=== PATIENT | male | born 1985 | race Caucasian/White ===

== ENCOUNTER 2024-09-25 21:36 | Emergency (ER) | payer BC ==
--- OUTSIDE RECORDS SUMMARY | 2024-09-25 21:40 | XMS REPORT | Continuity of Care Document ---
Author Name Unknown Address [address] [facility] [place] [address] [facility] thconnect Address [address] [facility] [place] [address] Care Team Providers Care Sld Teacher Name Role Phone AMANDA GREENFIELD Attending Clinician Unavailable WELLNESS Attending Clinician Unavailable Payers Payer Name Policy Type Policy Number Effective Date Expirati on Date Source Allergies, Adverse Reactions, Alerts Allergy Name Allergy Type Status Severity Reaction(s) Onset Date Inactive Date Treating Clinician Comments Source No Known Allergie s DA Active U 04-22 00:00: 00 [facility] No Known Allergie s DA Active U 04-22 00:00: 00 [facility] No Known Allergie s DA Active U 04-11 00:00: 00 [facility] No Known Allergie s DA Active U 04-11 00:00: 00 [facility] Social History Social Habit Start Date Stop Date Quantity Comments Source Sex 2024-05-13 00:11:00 2024-05-13 00:11:00 Male (finding) [facility] Sex Assigned At 1985 00:00:00 1985 00:00:[address] [facility] Smoking Status Start Date Stop Date Source Unknown if ever smoked [facility] Procedures Procedure Date / Time Performed Performing Clinicia n Source CT Chest High Resolution 2024-05-12 16:50:00 [facility] Encounters Start Date/Time End Date/Time Encounter Type Admission Type Attending Clinicians Care Facility Care Department Encounter ID Source 2020-04-22 14:36:00 Inpatient [facility] [id number] [facility] 2024-05-12 16:30:00 2024-05-12 16:31:00 Outpatient R AMANDA GREENFIELD [facility] [id number] [facility] 2024-05-12 16:30:00 2024-05-12 16:31:[address] [facility] [id number] [facility] 2021-03-14 10:18:00 2021-03-14 10:18:00 [facility]patient [facility] [id number] [facility] 2020-12-05 07:52:00 2020-12-05 07:52:00 [facility]patient [facility] [id number] [facility] 2020-07-03 09:22:00 2020-07-03 09:22:00 [facility]patient [facility] [id number] [facility] Results Test Description Test Time Test Comments Results Resul t Comments Source CT Chest High Resolution 2024-05-12 17:55:00 [facility] KHADIJAHHarriettme: SILVIA ANGEL : 1985 Sex: M CH I [facility] Pt Name: SILVIA ANGEL III [id number] Phys: OUT OF TOWN PHYSICIAN JEREMIAH Cross [phone] : 1985 Age: 38 SEX:M [phone] Exam Date: 05/12/24 Status: REG CLI Acct: [id number] Loc: CT Pt Unit #: [id number] Report #: [id number] CC: OUT OF TOWN PHYSICIAN : CAT SCAN REPORT Report Status: Signed Order # Category/Exam [id number] CT/CT Chest High Resolution ([id number]): . Results EXAM:CT Chest High Resolution HISTORY: Bronchiectasis ABPA COMPARISON: None TECHNIQUE: Axial CT chest without contrast using a high resolution technique. Multiplanar reformatted imaging obtained. FINDINGS: Minimal bronchiectasis and bronchial wall thickening in the central lower lobes predominantly. No appreciable consolidation, pleural effusion or pneumothorax. No pulmonary fibrotic changes. No definite air trapping on the expiratory phase imaging. No pericardial effusion. Normal caliber aorta. No enlarged thoracic lymph node. Partially imaged upper abdomen without appreciable acute abnormality. No acute osseous abnormality. IMPRESSION: Mild bronchiectasis. No definite air trapping. No pulmonary fibrotic changes. Reported By: Sudheer Remy MD Electronically Signed Date/Time: 05/12/24 1750 Technologist: ROHAN Dictated Date/Time: 05/12/24 1726 Transcribed Date/Time: 85CB W/AUTO [id number] 11:55:00* Test Item Value Reference Range Interpretation Comme nts WHITE BLOOD CELL (test code = WBC) 4.8 X10(3) 4.5-11.0 N RED BLOOD CELL (test code = RBC) 5.17 X10(6) 4.3-5.9 N HEMOGLOBIN (test code = HGB) 16.4 g/dL 13.5-18.0 N HEMATOCRIT (test code = HCT) 46.0 % 42.0-52.0 N MEAN CELL VOLUME (test code = MCV) 89.0 fL 78-100 N MEAN CELL HGB (test code = MCH) 31.7 pg 26.0-34.0 N MEAN CELL HGB CONCETRATION (test code = MCHC) 35.7 g/dl 30.0-37.0 N RED CELL DISTRIBUTION WIDTH (test code = RDW) 12.1 % 11.5-14.5 N PLATELET COUNT (test code = PLT) 266 X10(3) 150-400 N MEAN PLATELET VOLUME (test c ode = MPV) 9.8 fl 8.7-11.4 N NEUTROPHIL % (test code = NT%) 52.3 % 36.0-66.0 N IMMATURE GRANULOCYTE % (test code = IG%) 0.2 % 0.0-2.0 N LYMPHOCYTE % (test code = LY%) 36.4 % 16-50 N MONOCYTE % (test code = MO%) 9.1 % 0.0-13.0 N EOSINOPHIL % (test code = EO%) 1.2 % 0.0-4.5 N BASOPHIL % (test code = BA%) 0.8 % 0.0-1.5 N NEUTROPHIL # (test code = NT#) 2.5 X10(3) 1.7-7.7 N IMMATURE GRANULOCYTE # (test code = IG#) 0.01 X10(3)uL 0.00-0.03 N LYMPHOCYTE # (test code = LY#) 1.8 X10(3) 1.0-4.8 N MONOCYTE # (test code = MO#) 0.4 X10(3) 0.0-0.89 N EOSINOPHIL # (test code = EO#) 0.1 X10(3) 0.0-0.6 N BASOPHIL # (test code = BA#) 0.0 X10(3) 0.0-0.2 N 85CBC W/AUTO [id number] 13:37:00* Test Item Value Reference Range Interpretation Comme nts WHITE BLOOD CELL (test code = WBC) 5.6 X10(3) 4.5-11.0 N RED BLOOD CELL (test code = RBC) 5.30 X10(6) 4.3-5.9 N HEMOGLOBIN (test code = HGB) 16.4 g/dL 13.5-18.0 N HEMATOCRIT (test code = HCT) 47.4 % 42.0-52.0 N MEAN CELL VOLUME (test code = MCV) 89.4 fL 78-100 N MEAN CELL HGB (test code = MCH) 30.9 pg 26.0-34.0 N MEAN CELL HGB CONCETRATION (test code = MCHC) 34.6 g/dl 30.0-37.0 N RED CELL DISTRIBUTION WIDTH (test code = RDW) 12.6 % 11.5-14.5 N PLATELET COUNT (test code = PLT) 233 X10(3) 150-350 N MEAN PLATELET VOLUME (test c ode = MPV) 9.8 fl 8.7-11.4 N NEUTROPHIL % (test code = NT%) 51.8 % 36.0-66.0 N IMMATURE GRANULOCYTE % (test code = IG%) 0.2 % 0.0-2.0 N LYMPHOCYTE % (test code = LY%) 36.6 % 16-50 N MONOCYTE % (test code = MO%) 8.9 % 0.0-13.0 N EOSINOPHIL % (test code = EO%) 1.6 % 0.0-4.5 N BASOPHIL % (test code = BA%) 0.9 % 0.0-1.5 N NEUTROPHIL # (test code = NT#) 2.9 X10(3) 1.7-7.7 N IMMATURE GRANULOCYTE # (test code = IG#) 0.01 X10(3)uL 0.00-0.03 N LYMPHOCYTE # (test code = LY#) 2.1 X10(3) 1.0-4.8 N MONOCYTE # (test code = MO#) 0.5 X10(3) 0.0-0.89 N EOSINOPHIL # (test code = EO#) 0.1 X10(3) 0.0-0.6 N BASOPHIL # (test code = BA#) 0.1 X10(3) 0.0-0.2 N 90CHEMISTRY 25 [id number] 13:34:00* Test Item Value Reference Range Interpretation Comme nts SODIUM (test code = NA) 139 mmol/L 136-145 N POTASSIUM (test code = K) 4.5 mmol/L 3.5-5.1 N CHLORIDE (test code = CL) 102 mmol/L 98-107 N CARBON DIOXIDE (test code = CO2) 30 mmol/L 21-32 N GLUCOSE (test code = GLU) 85 mg/dL 70-100 N BLOOD UREA NITROGEN (test code = BUN) 17 mg/dL 7-18 N GLOMERULAR FILTRATION RATE (test code = GFR) > 60.00 See_Comment Reporting units: mL/min/1.73m\S\2 (Modified MDRD formula)REFERENCE RANGE: > or = 60 ml/min/1.73M2IF PATIENT IS -SINGAPORE[place], MULTIPLY REPORTED RESULT BY1.21.The Glomerular Filtration Rate is a calculated parameterbased on serum Creatinine, patient age and sex. GFR valuesless than 60 mL/min/1.73 square meters are indicative ofChronic Kidney Disease. Values less than 15 mL/min/1.73square meters indicate Kidney failure. The calculation forGFR is based on the CKD-EPI (2020) calculation. This formulais race indifferent and is the recommended formula for GFRby the National Kidney Foundation for Adults.The GFR will not calculate if the sex is unknown or if thepatient's age is <18 years. [Automated message] The system which generated this result transmitted reference range: >=60. The reference range was not used to interpret this result as normal/abnormal. CREATININE (test code = CREAT) 0.98 mg/dl 0.70-1.30 N TOTAL PROTEIN (test code = PROT) 7.4 g/dl 6.4-8.2 N ALBUMIN (test code = ALB) 4.5 g/dl 3.4-5.0 N CALCIUM (test code = CA) 9.2 mg/dl 8.5-10.1 N PHOSPHOROUS (test code = PHOS) 3.8 mg/dl 2.6-4.7 N URIC ACID (test code = URIC) 4.8 mg/dL 3.5-7.2 N TRIGLYCERIDES (test code = TRIG) 45 mg/dL <150 CHOLESTEROL (test code = CHOL) 167 mg/dL < 200 BILIRUBIN TOTAL (test code = BILT) 1.1 mg/dL 0.2-1.0 H SGOT/AST (test code = AST) 46 U/L 15-37 H SGPT/ALT (test code = ALT) 69 U/L 12-78 N GAMMA GLUTAMYL TRANSPEPTIDASE (test code = GGT) 13 U/L 15-85 L ALKALINE PHOSPHATASE TOTAL (test code = ALKP) 88 U/L 45-117 N LACTIC DEHYDROGENASE(LDH) (test code = LDH) 220 U/L 87-241 N HDL CHOLESTEROL (test code = HDL) 81 mg/dL 40-59 H NON-HDL CHOLESTEROL (test code = NHDL) 86 mg/dl <130 LIPOPROTEIN LDL ELANA (test code = LDLC) 77 mg/dl <100 LDL/HDL (test code = LDL/HDL) 1.0 Ratio LDL/HDL RATIO RI 3.22 Average 5.03 Twice average 6.14 Three times average 90CHEMISTRY 25 [id number] 12:25:00* Test Item Value Reference Range Interpretation Comme nts SODIUM (test code = NA) 141 mmol/L 136-145 N POTASSIUM (test code = K) 4.0 mmol/L 3.5-5.1 N CHLORIDE (test code = CL) 105 mmol/L 98-107 N CARBON DIOXIDE (test code = CO2) 25 mmol/L 21-32 N GLUCOSE (test code = GLU) 87 mg/dL 70-100 N BLOOD UREA NITROGEN (test code = BUN) 13 mg/dL 7-18 N GLOMERULAR FILTRATION RATE (test code = GFR) > 60.00 See_Comment Reporting units: mL/min/1.73m\S\2 (Modified MDRD formula)REFERENCE RANGE: > or = 60 ml/min/1.73M2IF PATIENT IS -SINGAPOREAN, MULTIPLY REPORTED RESULT BY1.21. [Automated message] The system which generated this result transmitted reference range: >=60. The reference range was not used to interpret this result as normal/abnormal. CREATININE (test code = CREAT) 0.85 mg/dl 0.70-1.30 N TOTAL PROTEIN (test code = PROT) 6.8 g/dl 6.4-8.2 N ALBUMIN (test code = ALB) 4.2 g/dl 3.4-5.0 N CALCIUM (test code = CA) 8.9 mg/dl 8.5-10.1 N PHOSPHOROUS (test code = PHOS) 3.5 mg/dl 2.6-4.7 N URIC ACID (test code = URIC) 4.3 mg/dL 3.5-7.2 N TRIGLYCERIDES (test code = TRIG) 38 mg/dL <150 CHOLESTEROL (test code = CHOL) 150 mg/dL < 200 BILIRUBIN TOTAL (test code = BILT) 1.1 mg/dL 0.2-1.0 H SGOT/AST (test code = AST) 41 U/L 15-37 H SGPT/ALT (test code = ALT) 92 U/L 12-78 H GAMMA GLUTAMYL TRANSPEPTIDASE (test code = GGT) 15 U/L 15-85 N ALKALINE PHOSPHATASE TOTAL (test code = ALKP) 96 U/L 45-117 N LACTIC DEHYDROGENASE(LDH) (test code = LDH) 184 U/L 87-241 N HDL CHOLESTEROL (test code = HDL) 74 mg/dL 40-59 H NON-HDL CHOLESTEROL (test code = NHDL) 76 mg/dl <130 LIPOPROTEIN LDL ELANA (test code = LDLC) 68 mg/dl <100 LDL/HDL (test code = LDL/HDL) 0.9 Ratio LDL/HDL [facility] 3.22 Average 5.03 Twice average 6.14 Three times average 88CBC W/AUTO [id number] 10:33:00* Test Item Value Reference Range Interpretation Comme nts WHITE BLOOD CELL (test code = WBC) 5.8 X10(3) 4.5-11.0 N RED BLOOD CELL (test code = RBC) 5.15 X10(6) 4.3-5.9 N HEMOGLOBIN (test code = HGB) 16.1 g/dL 13.5-18.0 N HEMATOCRIT (test code = HCT) 45.5 % 42.0-52.0 N MEAN CELL VOLUME (test code = MCV) 88.3 fL 78-100 N MEAN CELL HGB (test code = MCH) 31.3 pg 26.0-34.0 N MEAN CELL HGB CONCETRATION (test code = MCHC) 35.4 g/dl 30.0-37.0 N RED CELL DISTRIBUTION WIDTH (test code = RDW) 12.4 % 11.5-14.5 N PLATELET COUNT (test code = PLT) 195 X10(3) 150-350 N MEAN PLATELET VOLUME (test c ode = MPV) 10.0 fl 8.7-11.4 N NEUTROPHIL % (test code = NT%) 75.5 % 36.0-66.0 H IMMATURE GRANULOCYTE % (test code = IG%) 0.2 % 0.0-2.0 N LYMPHOCYTE % (test code = LY%) 13.0 % 16-50 L MONOCYTE % (test code = MO%) 9.1 % 0.0-13.0 N EOSINOPHIL % (test code = EO%) 1.2 % 0.0-4.5 N BASOPHIL % (test code = BA%) 1.0 % 0.0-1.5 N NEUTROPHIL # (test code = NT#) 4.4 X10(3) 1.7-7.7 N IMMATURE GRANULOCYTE # (test code = IG#) 0.01 X10(3)uL 0.00-0.03 N LYMPHOCYTE # (test code = LY#) 0.8 X10(3) 1.0-4.8 L MONOCYTE # (test code = MO#) 0.5 X10(3) 0.0-0.89 N EOSINOPHIL # (test code = EO#) 0.1 X10(3) 0.0-0.6 N BASOPHIL # (test code = BA#) 0.1 X10(3) 0.0-0.2 N RBC MORPHOLOGY REQUIRED (ana t code = RBCM) NO NORMAL 88CHEMISTRY 25 [id number] 11:53:00* Test Item Value Reference Range Interpretation Comme nts SODIUM (test code = NA) 144 mmol/L 136-145 N POTASSIUM (test code = K) 4.3 mmol/L 3.5-5.1 N CHLORIDE (test code = CL) 105 mmol/L 98-107 N CARBON DIOXIDE (test code = CO2) 31 mmol/L 21-32 N GLUCOSE (test code = GLU) 104 mg/dL 70-100 H BLOOD UREA NITROGEN (test code = BUN) 16 mg/dL 7-18 N GLOMERULAR FILTRATION RATE (test code = GFR) > 60.00 See_Comment Reporting units: mL/min/1.73m\S\2 (Modified MDRD formula)REFERENCE RANGE: > or = 60 ml/min/1.73M2IF PATIENT IS -SINGAPOREAN, MULTIPLY REPORTED RESULT BY1.21. [Automated message] The system which generated this result transmitted reference range: >=60. The reference range was not used to interpret this result as normal/abnormal. CREATININE (test code = CREAT) 0.93 mg/dl 0.70-1.30 N TOTAL PROTEIN (test code = PROT) 7.4 g/dl 6.4-8.2 N ALBUMIN (test code = ALB) 4.3 g/dl 3.4-5.0 N CALCIUM (test code = CA) 8.7 mg/dl 8.5-10.1 N PHOSPHOROUS (test code = PHOS) 3.9 mg/dl 2.6-4.7 N URIC ACID (test code = URIC) 5.1 mg/dL 3.5-7.2 N TRIGLYCERIDES (test code = TRIG) 34 mg/dL <150 CHOLESTEROL (test code = CHOL) 180 mg/dL < 200 BILIRUBIN TOTAL (test code = BILT) 0.7 mg/dL 0.2-1.0 N SGOT/AST (test code = AST) 30 U/L 15-37 N SGPT/ALT (test code = ALT) 61 U/L 12-78 N GAMMA GLUTAMYL TRANSPEPTIDASE (test code = GGT) 13 U/L 15-85 L ALKALINE PHOSPHATASE TOTAL (test code = ALKP) 107 U/L 45-117 N LACTIC DEHYDROGENASE(LDH) (test code = LDH) 200 U/L 87-241 N HDL CHOLESTEROL (test code = HDL) 80 mg/dL 40-59 H NON-HDL CHOLESTEROL (test code = NHDL) 100 mg/dl <130 LIPOPROTEIN LDL ELANA (test code = LDLC) 93 mg/dl <100 LDL/HDL (test code = LDL/HDL) 1.2 Ratio LDL/HDL RATIO R ISK 3.22 Average 5.03 Twice average 6.14 Three times average #12PECBC W/AUTO [id number] 10:31:00* Test Item Value Reference Range Interpretation Comme nts WHITE BLOOD CELL (test code = WBC) 5.4 X10(3) 4.5-11.0 N RED BLOOD CELL (test code = RBC) 5.23 X10(6) 4.3-5.9 N HEMOGLOBIN (test code = HGB) 16.1 g/dL 13.5-18.0 N HEMATOCRIT (test code = HCT) 47.2 % 42.0-52.0 N MEAN CELL VOLUME (test code = MCV) 90.2 fL 78-100 N MEAN CELL HGB (test code = MCH) 30.8 pg 26.0-34.0 N MEAN CELL HGB CONCETRATION (test code = MCHC) 34.1 g/dl 30.0-37.0 N RED CELL DISTRIBUTION WIDTH (test code = RDW) 12.1 % 11.5-14.5 N PLATELET COUNT (test code = PLT) 225 X10(3) 150-350 N MEAN PLATELET VOLUME (test c ode = MPV) 10.5 fl 8.7-11.4 N NEUTROPHIL % (test code = NT%) 55.8 % 36.0-66.0 N IMMATURE GRANULOCYTE % (test code = IG%) 0.2 % 0.0-2.0 N LYMPHOCYTE % (test code = LY%) 33.8 % 16-50 N MONOCYTE % (test code = MO%) 7.8 % 0.0-13.0 N EOSINOPHIL % (test code = EO%) 1.3 % 0.0-4.5 N BASOPHIL % (test code = BA%) 1.1 % 0.0-1.5 N NEUTROPHIL # (test code = NT#) 3.0 X10(3) 1.7-7.7 N IMMATURE GRANULOCYTE # (test code = IG#) 0.01 X10(3)uL 0.00-0.03 N LYMPHOCYTE # (test code = LY#) 1.8 X10(3) 1.0-4.8 N MONOCYTE # (test code = MO#) 0.4 X10(3) 0.0-0.89 N EOSINOPHIL # (test code = EO#) 0.1 X10(3) 0.0-0.6 N BASOPHIL # (test code = BA#) 0.1 X10(3) 0.0-0.2 N RBC MORPHOLOGY REQUIRED (ana t code = RBCM) NO NORMAL #12PECHEMISTRY 25 [id number] 09:18:00* Test Item Value Reference Range Interpretation Comme nts SODIUM (test code = NA) 142 mmol/L 136-145 N POTASSIUM (test code = K) 4.3 mmol/L 3.5-5.1 N CHLORIDE (test code = CL) 104 mmol/L 98-107 N CARBON DIOXIDE (test code = CO2) 28 mmol/L 21-32 N GLUCOSE (test code = GLU) 100 mg/dL 70-100 N BLOOD UREA NITROGEN (test code = BUN) 17 mg/dL 7-18 N GLOMERULAR FILTRATION RATE (test code = GFR) > 60.00 >=60 Reporting units: mL/min/1.73m\S\2 (Modified MDRD formula)REFERENCE RANGE: > or = 60 ml/min/1.73M2IF PATIENT IS -SINGAPOREAN, MULTIPLY REPORTED RESULT BY1.21. CREATININE (test code = CREAT) 1.06 mg/dl 0.70-1.30 N TOTAL PROTEIN (test code = PROT) 7.5 g/dl 6.4-8.2 N ALBUMIN (test code = ALB) 4.1 g/dl 3.4-5.0 N CALCIUM (test code = CA) 9.1 mg/dl 8.5-10.1 N PHOSPHOROUS (test code = PHOS) 3.6 mg/dl 2.6-4.7 N URIC ACID (test code = URIC) 5.3 mg/dL 3.5-7.2 N TRIGLYCERIDES (test code = TRIG) 67 mg/dL <150 CHOLESTEROL (test code = CHOL) 247 mg/dL < 200 H BILIRUBIN TOTAL (test code = BILT) 0.4 mg/dL 0.2-1.0 N SGOT/AST (test code = AST) 29 U/L 15-37 N SGPT/ALT (test code = ALT) 58 U/L 12-78 N GAMMA GLUTAMYL TRANSPEPTIDASE (test code = GGT) 14 U/L 15-85 L ALKALINE PHOSPHATASE TOTAL (test code = ALKP) 92 U/L 45-117 N LACTIC DEHYDROGENASE(LDH) (test code = LDH) 168 U/L 87-241 N HDL CHOLESTEROL (test code = HDL) 75 mg/dL 40-59 H NON-HDL CHOLESTEROL (test code = NHDL) 172 mg/dl <130 H LIPOPROTEIN LDL ELANA (test code = LDLC) 159 mg/dl <100 H LDL/HDL (test code = LDL/HDL) 2.1 Ratio LDL/HDL [facility] 3.22 Average 5.03 Twice average 6.14 Three times average #26PE FX TO DR CORDOBA [id number] W/AUTO [id number] 08:36:00* Test Item Value Reference Range Interpretation Comme nts WHITE BLOOD CELL (test code = WBC) 4.7 X10(3) 4.5-11.0 N RED BLOOD CELL (test code = RBC) 5.25 X10(6) 4.3-5.9 N HEMOGLOBIN (test code = HGB) 15.9 g/dL 13.5-18.0 N HEMATOCRIT (test code = HCT) 46.9 % 42.0-52.0 N MEAN CELL VOLUME (test code = MCV) 89.3 fL 78-100 N MEAN CELL HGB (test code = MCH) 30.3 pg 26.0-34.0 N MEAN CELL HGB CONCETRATION (test code = MCHC) 33.9 g/dl 30.0-37.0 N RED CELL DISTRIBUTION WIDTH (test code = RDW) 12.5 % 11.5-14.5 N PLATELET COUNT (test code = PLT) 230 X10(3) 150-350 N MEAN PLATELET VOLUME (test c ode = MPV) 9.7 fl 8.7-11.4 N NEUTROPHIL % (test code = NT%) 45.5 % 36.0-66.0 N IMMATURE GRANULOCYTE % (test code = IG%) 0.2 % 0.0-2.0 N LYMPHOCYTE % (test code = LY%) 34.8 % 16-50 N MONOCYTE % (test code = MO%) 16.0 % 0.0-13.0 H EOSINOPHIL % (test code = EO%) 2.7 % 0.0-4.5 N BASOPHIL % (test code = BA%) 0.8 % 0.0-1.5 N NEUTROPHIL # (test code = NT#) 2.2 X10(3) 1.7-7.7 N IMMATURE GRANULOCYTE # (test code = IG#) 0.01 X10(3)uL 0.00-0.03 N LYMPHOCYTE # (test code = LY#) 1.7 X10(3) 1.0-4.8 N MONOCYTE # (test code = MO#) 0.8 X10(3) 0.0-0.89 N EOSINOPHIL # (test code = EO#) 0.1 X10(3) 0.0-0.6 N BASOPHIL # (test code = BA#) 0.0 X10(3) 0.0-0.2 N #26PE FX TO DR CORDOBA [id number] 13:44:00* Test Item Value Reference Range Interpretation Comme nts INSULIN (test code = INS) 5.56 uIU/ML 3-28 N #40P AND FAXCHEMISTRY 25 [id number] 11:22:00* Test Item Value Reference Range Interpretation Comme nts SODIUM (test code = NA) 138 mmol/L 136-145 N POTASSIUM (test code = K) 4.1 mmol/L 3.5-5.1 N CHLORIDE (test code = CL) 101 mmol/L 98-107 N CARBON DIOXIDE (test code = CO2) 28 mmol/L 21-32 N GLUCOSE (test code = GLU) 95 mg/dL 70-100 N BLOOD UREA NITROGEN (test code = BUN) 16 mg/dL 7-18 N GLOMERULAR FILTRATION RATE (test code = GFR) > 60.00 >=60 Reporting units: mL/min/1.73m\S\2 (Modified MDRD formula)REFERENCE RANGE: > or = 60 ml/min/1.73M2IF PATIENT IS -SINGAPOREAN, MULTIPLY REPORTED RESULT BY1.21. CREATININE (test code = CREAT) 0.93 mg/dl 0.70-1.30 N TOTAL PROTEIN (test code = PROT) 7.4 g/dl 6.4-8.2 N ALBUMIN (test code = ALB) 4.4 g/dl 3.4-5.0 N CALCIUM (test code = CA) 9.3 mg/dl 8.5-10.1 N PHOSPHOROUS (test code = PHOS) 3.3 mg/dl 2.6-4.7 N URIC ACID (test code = URIC) 4.8 mg/dL 3.5-7.2 N TRIGLYCERIDES (test code = TRIG) 60 mg/dL <150 CHOLESTEROL (test code = CHOL) 220 mg/dL < 200 H BILIRUBIN TOTAL (test code = BILT) 0.7 mg/dL 0.2-1.0 N SGOT/AST (test code = AST) 24 U/L 15-37 N SGPT/ALT (test code = ALT) 42 U/L 12-78 N GAMMA GLUTAMYL TRANSPEPTIDASE (test code = GGT) 16 U/L 15-85 N ALKALINE PHOSPHATASE TOTAL (test code = ALKP) 77 U/L 45-117 N LACTIC DEHYDROGENASE(LDH) (test code = LDH) 171 U/L 87-241 N HDL CHOLESTEROL (test code = HDL) 75 mg/dL 40-59 H NON-HDL CHOLESTEROL (test code = NHDL) 145 mg/dl <130 H LIPOPROTEIN LDL ELANA (test code = LDLC) 133 mg/dl <100 H LDL/HDL (test code = LDL/HDL) 1.8 Ratio LDL/HDL RATIO RI SK 3.22 Average 5.03 Twice average 6.14 Three times average #40P AND FAXCBC W/AUTO [id number] 10:31:00* Test Item Value Reference Range Interpretation Comme nts WHITE BLOOD CELL (test code = WBC) 5.4 X10(3) 4.5-11.0 N RED BLOOD CELL (test code = RBC) 5.14 X10(6) 4.3-5.9 N HEMOGLOBIN (test code = HGB) 15.6 g/dL 13.5-18.0 N HEMATOCRIT (test code = HCT) 46.1 % 42.0-52.0 N MEAN CELL VOLUME (test code = MCV) 89.7 fL 78-100 N MEAN CELL HGB (test code = MCH) 30.4 pg 26.0-34.0 N MEAN CELL HGB CONCETRATION (test code = MCHC) 33.8 g/dl 30.0-37.0 N RED CELL DISTRIBUTION WIDTH (test code = RDW) 12.3 % 11.5-14.5 N PLATELET COUNT (test code = PLT) 249 X10(3) 150-350 N MEAN PLATELET VOLUME (test c ode = MPV) 10.3 fl 8.7-11.4 N NEUTROPHIL % (test code = NT%) 53.2 % 36.0-66.0 N IMMATURE GRANULOCYTE % (test code = IG%) 0.0 % 0.0-2.0 N LYMPHOCYTE % (test code = LY%) 34.7 % 16-50 N MONOCYTE % (test code = MO%) 8.3 % 0.0-13.0 N EOSINOPHIL % (test code = EO%) 2.9 % 0.0-4.5 N BASOPHIL % (test code = BA%) 0.9 % 0.0-1.5 N NEUTROPHIL # (test code = NT#) 2.9 X10(3) 1.7-7.7 N IMMATURE GRANULOCYTE # (test code = IG#) 0.00 X10(3)uL 0.00-0.03 N LYMPHOCYTE # (test code = LY#) 1.9 X10(3) 1.0-4.8 N MONOCYTE # (test code = MO#) 0.5 X10(3) 0.0-0.89 N EOSINOPHIL # (test code = EO#) 0.2 X10(3) 0.0-0.6 N BASOPHIL # (test code = BA#) 0.1 X10(3) 0.0-0.2 N #40P AND FAX- CT ABD PELVIS [id number] 17:02:00Name: SILVIA ANGEL [facility] FSED : 1985 Age/S: 34 / M [address] [facility] Unit #: [id number] Loc: [address] Phys: MunozColtYony M [place], [place] [address] Acct: [id number] Dis Date: Status: REG ER PHONE #: Exam Date: 04/22/2020 1629 FAX #: Reason: RLQ ABD PAIN EXAMS: CPT CODE: [id number] CT ABD PELVIS W/CONT [id number] EXAM: CT of the abdomen and pelvis with contrast; INFORMATION: Right lower quadrant pain; TECHNIQUE: CT dose reduction protocol; 5 mm cuts were obtained through the abdomen and pelvis during and after intravenous infusion of contrast material. FINDINGS: Liver, spleen and pancreas are of normal size and shape; they show homogeneous enhancement without focal lesions. No abnormalities of the biliary system. Adrenal glands and kidneys are unremarkable; no evidence of adenopathy; No evidence of appendicitis or other acute bowel abnormalities. A normal appendixis seen. No pelvic mass lesions. No abnormal fluid collections. Scans through the lung bases are clear. IMPRESSION: No evidence of acute abdominal or pelvic abnormalities. Location code: [facility] at 1702 Reported and signed by: Cholo Aguilar M.D. CC: Yony Munoz DO Technologist:TERESO ALEXANDER RT(R)(CT) CTDI: DLP: Trnscb Date/Time: 04/22/2020 (170) [email or web address] Orig Print D/T: S: 04/22/2020 (5162) PAGE 1 Signed ReportBASIC METABOLIC [id number] 15:45:00* Test Item Value Reference Range Interpretation Comme nts SODIUM (test code = NA) 140 mmol/L 128-145 N POTASSIUM (test code = K) 3.8 mmol/L 3.5-5.1 N CHLORIDE (test code = CL) 100.0 mmol/L 98-107 N CARBON DIOXIDE (test code = CO2) 32.8 mmol/L 22-29 H ANION GAP (test code = GAP) 11 mmol/L 10-20 N GLUCOSE (test code = GLU) 97 mg/dL 70-110 N BLOOD UREA NITROGEN (test code = BUN) 7 mg/dL 7-22 N GLOMERULAR FILTRATION RATE (test code = GFR) > 60 mL/min >=60 Estimated GFR by using Modified MDRD formula.Chronic kidney disease is defined as either kidney damageor GFR <60 mL/min/1.73 m2 for >3 months. CREATININE (test code = CREAT) 0.93 mg/dL 0.55-1.3 N BUN/CREATININE RATIO (test code = BUN/CREA) 7.5 10-20 L CALCIUM (test code = CA) 9.1 mg/dL 8.0-10.5 N HEPATIC FUNCTION [id number] 15:45:00* Test Item Value Reference Range Interpretation Comme nts TOTAL PROTEIN (test code = PROT) gram/dL 6.4-8.2 ALBUMIN (test code = ALB) g/dL 3.4-5.0 GLOBULIN (test code = GLOB) G/DL 1-10 ALBUMIN/GLOBULIN RATIO (test code = A/G) 0.75-1.50 BILIRUBIN TOTAL (test code = BILT) mg/dL 0.0-1.0 BILIRUBIN DIRECT (test code = BILD) mg/dL 0.0-0.20 SGOT/AST (test code = AST) IUnit/L 15-37 SGPT/ALT (test code = ALT) IUnit/L 12-78 ALKALINE PHOSPHATASE TOTAL ( test code = ALKP) IUnit/L 45-117 [id number] 15:45:00* Test Item Value Reference Range Interpretation Comme nts LIPASE (test code = LIP) U/L 73.0-393.0 BASIC METABOLIC [id number] 15:45:00* Test Item Value Reference Range Interpretation Comme nts SODIUM (test code = NA) 140 mmol/L 128-145 N POTASSIUM (test code = K) 3.8 mmol/L 3.5-5.1 N CHLORIDE (test code = CL) 100.0 mmol/L 98-107 N CARBON DIOXIDE (test code = CO2) 32.8 mmol/L 22-29 H ANION GAP (test code = GAP) 11 mmol/L 10-20 N GLUCOSE (test code = GLU) 97 mg/dL 70-110 N BLOOD UREA NITROGEN (test code = BUN) 7 mg/dL 7-22 N GLOMERULAR FILTRATION RATE (test code = GFR) > 60 mL/min >=60 Estimated GFR by using Modified MDRD formula.Chronic kidney disease is defined as either kidney damageor GFR <60 mL/min/1.73 m2 for >3 months. CREATININE (test code = CREAT) 0.93 mg/dL 0.55-1.3 N BUN/CREATININE RATIO (test code = BUN/CREA) 7.5 10-20 L CALCIUM (test code = CA) 9.1 mg/dL 8.0-10.5 N HEPATIC FUNCTION [id number] 15:45:00* Test Item Value Reference Range Interpretation Comme nts TOTAL PROTEIN (test code = PROT) 7.6 gram/dL 6.1-7.8 N ALBUMIN (test code = ALB) 4.6 g/dL 3.3-4.4 H GLOBULIN (test code = GLOB) 3.0 G/DL 1-10 N ALBUMIN/GLOBULIN RATIO (test code = A/G) 1.5 0.75-1.50 N BILIRUBIN TOTAL (test code = BILT) 0.80 mg/dL 0.2-1.2 N BILIRUBIN DIRECT (test code = BILD) 0.20 mg/dL 0.0-0.30 N SGOT/AST (test code = AST) 27 U/L 10-39 N SGPT/ALT (test code = ALT) 29 U/L 10-69 N ALKALINE PHOSPHATASE TOTAL ( test code = ALKP) 94 U/L 50-139 N [id number] 15:45:00* Test Item Value Reference Range Interpretation Comme nts LIPASE (test code = LIP) 155 Unit/L 144-286 N CBC W/O [id number] 15:31:00* Test Item Value Reference Range Interpretation Comme nts WHITE BLOOD CELL (test code = WBC) 8.0 K/mm3 4.5-12.5 N RED BLOOD CELL (test code = RBC) 5.36 mill/mm3 4.0-5.8 N HEMOGLOBIN (test code = HGB) 16.3 gram/dL 13.0-17.5 N HEMATOCRIT (test code = HCT) 47.0 % 42.0-52.0 N MEAN CELL VOLUME (test code = MCV) 87.7 fL 80-98 N MEAN CELL HGB (test code = MCH) 30.4 picogram 27.0-33.0 N MEAN CELL HGB CONCETRATION (test code = MCHC) 34.7 gram/dL 33.0-36.0 N RED CELL DISTRIBUTION WIDTH (test code = RDW) 12.2 % 11.6-16.2 N RED CELL DISTRIBUTION WIDTH SD (test code = RDW-SD) 40.3 fL 37.0-51.0 N PLATELET COUNT (test code = PLT) 239 K/mm3 150-450 N MEAN PLATELET VOLUME (test c ode = MPV) 9.6 fL 6.7-11.0 N URINALYSIS [id number] 15:21:00* Test Item Value Reference Range Interpretation Comme nts UA COLOR (test code = COLU) YELLOW YELLOW UA APPEARANCE (test code = APPU) CLEAR CLEAR UA GLUCOSE DIPSTICK (test code = DGLUU) NEGATIVE mg/dL NEGATIVE UA BILIRUBIN DIPSTICK (test code = BILU) NEGATIVE NEGATIVE UA KETONE DIPSTICK (test code = KETU) NEGATIVE mg/dL NEGATIVE UA SPECIFIC GRAVITY (test code = SGU) 1.010 1.001-1.035 UA BLOOD DIPSTICK (test code = CHIRAG) NEGATIVE NEGATIVE UA PH DIPSTICK (test code = JAYSON) 7.0 5.0-8.0 UA PROTEIN DIPSTICK (test code = PROU) NEGATIVE mg/dL Neg-15 UA UROBILINIOGEN DIPSTICK (test code = URO) 0.2 mg/dL 0.0-0.2 UA NITRITE DIPSTICK (test code = CANDACE) NEGATIVE NEGATIVE UA LEUKOCYTE ESTERASE DIPSTICK (test code = LEUU) NEGATIVE uL NEGATIVE UA MICROSCOPIC NEEDED? (test code = UAMICRO) YES UA WBC (test code = WBCU) NONE SEEN per HPF 0-5 UA RBC (test code = RBCU) NONE SEEN per HPF 0-5 UA EPITHELIAL CELLS (test code = EPIU) Rare (0-1/hpf) per HPF Few UA BACTERIA (test code = BACU) OCCASIONAL per HPF NONE Urine Source? Clean CatchURINALYSIS [id number] 15:16:00* Test Item Value Reference Range Interpretation Comme nts UA COLOR (test code = COLU) YELLOW YELLOW UA APPEARANCE (test code = APPU) CLEAR CLEAR UA GLUCOSE DIPSTICK (test co de = DGLUU) NEGATIVE mg/dL NEGATIVE UA BILIRUBIN DIPSTICK (test code = BILU) NEGATIVE NEGATIVE UA KETONE DIPSTICK (test cod e = KETU) NEGATIVE mg/dL NEGATIVE UA SPECIFIC GRAVITY (test co de = SGU) 1.010 1.001-1.035 UA BLOOD DIPSTICK (test code = CHIRAG) NEGATIVE NEGATIVE UA PH DIPSTICK (test code = JAYSON) 7.0 5.0-8.0 UA PROTEIN DIPSTICK (test co de = PROU) NEGATIVE mg/dL Neg-15 UA UROBILINIOGEN DIPSTICK (test code = URO) 0.2 mg/dL 0.0-0.2 UA NITRITE DIPSTICK (test co de = CANDACE) NEGATIVE NEGATIVE UA LEUKOCYTE ESTERASE DIPSTI CK (test code = LEUU) NEGATIVE uL NEGATIVE UA MICROSCOPIC NEEDED? (test code = UAMICRO) UA WBC (test code = WBCU) per HPF 0-5 UA RBC (test code = RBCU) per HPF 0-5 UA EPITHELIAL CELLS (test co de = EPIU) per HPF Few UA BACTERIA (test code = BACU) per HPF NONE Urine Source? Clean Catch Notes Date/Time Note Provider Source 2020-04-22 16:51:00 [facility] ([facility]) EMERGENCY PROVIDER REPORT REPORT#:[id number] REPORT STATUS: Signed DATE:04/22/20 TIME: 165 PATIENT: SILVIA ANGEL UNIT #: [id number] ROOM/BED: AGE: 34 SEX: M PCP PHYS: No Primary or Family Physician SERVICE AUTHOR: Yony Munoz DO * ALL edits or amendments must be made on the electronic/computer document * HPI-Abd Pain M Under 40 General Initial Greet Date/Time 04/22/20 1437 Presentation Chief Complaint Abdominal pain, Nausea Free Text HPI Notes Free Text HPI Notes Patient is a 34-year-old male presenting for right-sided lower abdominal pain. The patient states that it has been intermittent for the last few months and does not really radiate other than going to the suprapubic region. It does become better whenever he urinates and he feels like he has urgency but no dysuria. He does have a little bit of nausea but states that this happened because he drank a lot yesterday on Father's Day. He denies any fevers or chills as well as testicle pain. Review of Systems ROS Statements All systems rev neg except as marked. Free Text ROS Notes Free Text ROS Notes Constitutional: Denies: Fatigue, Malaise, Chills, Fever, EYES: No redness, HENT: Negative for ear pain, sore throat, rhinorrhea, congestion Respiratory: Denies: Dyspnea on exertion, Shortness of breath, Cough, non- productive, Cardiovascular: Denies: Chest pain, Dyspnea on exertion, Palpitations. GI: Denies: Diarrhea, vomiting. Positive for abdominal pain and nausea : Negative for dysuria, positive for urinary frequency changes. NEURO: No focal deficit, no headache, no lightheadedness/dizziness HEM: No bleeding/bruising, MSK: Denies: Back pain. no neck pain SKIN: Denies rash, PSYCH: Denies suicidal ideation, anxiety Past Medical History - Adult Stated Complaint ABDOMINAL PAIN Allergies Coded Allergies: No Known Allergies (04/22/20) Home Medications Reported Medications No Known Home Medications Smoking status for patients 13 years old or older: Never Smoker Physical Exam Vital Signs Vital Signs First Documented: Result Date Time Pulse Ox 99 04/22 1502 B/P 141/93 04/22 1502 B/P Mean 109 04/22 1502 O2 Delivery Room air 04/22 1502 Temp 36.7 04/22 1502 Pulse 75 04/22 1502 Resp 18 04/22 1502 Last Documented: Result Date Time Pulse Ox 99 04/22 1502 B/P 141/93 04/22 1502 B/P Mean 109 04/22 1502 O2 Delivery Room air 04/22 1502 Temp 36.7 04/22 1502 Pulse 75 04/22 1502 Resp 18 04/22 1502 Review of Vital Signs Reviewed Free Text PE Notes Free Text PE Notes GENERAL/CONST: Awake, Alert, No acute distress, Cooperative EYES: EOM intact HENT: Airway patent, Mucous membranes moist RESP/CHEST: Breath sounds NL, Breath sounds = bilat, No respiratory distress, normal respiratory rate CARDIOVASCULAR: Heart rate NL, Regular rhythm, Heart sounds NL ABDOMEN/GI : Abdomen/GI Soft, Non-tender, No guarding, negative Pablo's sign, negative McBurney's point MS: Back Inspection NL, Non-tender MS Lower Extrem: no pitting edema to BLE. Legs are symmetric. SKIN No rash, Warm, Dry NEUROLOGIC: Oriented X3, Speech NL, CN II-XII intact Interpretation Diagnostics Lab Results Interpretation Results Laboratory Tests 04/22/20 1526: [Embedded Image Not Available] Laboratory Tests: 04/22 04/22 1526 1508 Chemistry Sodium (128 - 145 mmol/L) 140 Potassium (3.5 - 5.1 mmol/L) 3.8 Chloride (98 - 107 mmol/L) 100.0 Carbon Dioxide (22 - 29 mmol/L) 32.8 H Anion Gap (10 - 20 mmol/L) 11 BUN (7 - 22 mg/dL) 7 Creatinine (0.55 - 1.3 mg/dL) 0.93 Glomerular Filtr Rate (>=60 mL/min) > 60 BUN/Creatinine Ratio (10 - 20) 7.5 L Glucose (70 - 110 mg/dL) 97 Calcium (8.0 - 10.5 mg/dL) 9.1 Total Bilirubin (0.2 - 1.2 mg/dL) 0.80 Direct Bilirubin (0.0 - 0.30 mg/dL) 0.20 AST (10 - 39 U/L) 27 ALT (10 - 69 U/L) 29 Total Alk Phosphatase (50 - 139 U/L) 94 Total Protein (6.1 - 7.8 gram/dL) 7.6 Albumin (3.3 - 4.4 g/dL) 4.6 H Globulin (1 - 10 G/DL) 3.0 Albumin/Globulin Ratio (0.75 - 1.50) 1.5 Lipase (144 - 286 Unit/L) 155 Hematology WBC (4.5 - 12.5 K/mm3) 8.0 RBC (4.0 - 5.8 mill/mm3) 5.36 Hgb (13.0 - 17.5 gram/dL) 16.3 Hct (42.0 - 52.0 %) 47.0 MCV (80 - 98 fL) 87.7 MCH (27.0 - 33.0 picogram) 30.4 MCHC (33.0 - 36.0 gram/dL) 34.7 RDW (11.6 - 16.2 %) 12.2 RDW Std Deviation (37.0 - 51.0 fL) 40.3 Plt Count (150 - 450 K/mm3) 239 MPV (6.7 - 11.0 fL) 9.6 Urines Urine Color (YELLOW) YELLOW Urine Appearance (CLEAR) CLEAR Urine pH (5.0 - 8.0) 7.0 Ur Specific [place] (1.001 - 1.035) 1.010 Urine Protein (Neg - 15 mg/dL) NEGATIVE Urine Glucose (UA) (NEGATIVE mg/dL) NEGATIVE Urine Ketones (NEGATIVE mg/dL) NEGATIVE Urine Blood (NEGATIVE) NEGATIVE Urine Nitrite (NEGATIVE) NEGATIVE Urine Bilirubin (NEGATIVE) NEGATIVE Urine Urobilinogen (0.0 - 0.2 mg/dL) 0.2 Ur Leukocyte Esterase (NEGATIVE uL) NEGATIVE Urine RBC (0 - 5 per HPF) NONE SEEN Urine WBC (0 - 5 per HPF) NONE SEEN Ur Epithelial Cells (Few per HPF) Rare (0-1/hpf) Urine Bacteria (NONE per HPF) OCCASIONAL Recent Impressions: CAT SCAN - CT ABD PELVIS W/CONT 04/22 1605 Report Impression - Status: SIGNED Entered: 04/22/2020 3555 IMPRESSION: No evidence of acute abdominal or pelvic abnormalities. Location code: [facility] Impression By: Chris - Cholo Aguilar M.D. Re-Evaluation MDM Free Text MDM Notes Free Text MDM Notes Laboratory studies showed no evidence of acute kidney injury, transaminitis or pancreatitis. Of the abdomen was also unremarkable and it was advised to patient that the etiology of the symptoms are unclear but he should likely follow-up with urology as there is likely a urologic component as he states that the pain becomes better whenever he urinates. ED Course Medication(s) Ordered Medication(s) Ordered: Central Nervous System Agents Sig/Junior Start time Last Medication Dose Route Stop Time Status Admin Ketorolac 15 MG X1ED STA 04/22 1509 DC 04/22 Tromethamine IV 04/22 1510 1516 Diagnostic Agents Sig/Junior Start time Last Medication Dose Route Stop Time Status Admin Iopamidol 100 ML .STK-MED ONE 04/22 1619 DC 04/22 IV 04/22 1620 1619 Electrolytic, Caloric, And Christal Sig/Junior Start time Last Medication Dose Route Stop Time Status Admin Sodium Chloride 1,000 ML X1ED STA 04/22 1509 DC 04/22 IV 04/22 1608 1515 Gastrointestinal Drugs Sig/Junior Start time Last Medication Dose Route Stop Time Status Admin Ondansetron HCl 4 MG X1ED PRN PRN 04/22 1515 DC 04/22 IV 1516 Patient Discharge Departure Vital Signs/Condition Vital Signs First Documented: Result Date Time Pulse Ox 99 04/22 1502 B/P 141/93 04/22 1502 B/P Mean 109 04/22 1502 O2 Delivery Room air 04/22 1502 Temp 36.7 04/22 1502 Pulse 75 04/22 1502 Resp 18 04/22 1502 Last Documented: Result Date Time Pulse Ox 99 04/22 1502 B/P 141/93 04/22 1502 B/P Mean 109 04/22 1502 O2 Delivery Room air 04/22 1502 Temp 36.7 04/22 1502 Pulse 75 04/22 1502 Resp 18 04/22 1502 All vital signs available at the time of this entry have been reviewed. Clinical Impression Clinical Impression Primary Impression: Abdominal pain Secondary Impressions: History of changes to urinary frequency Time of Impression 1733 Disposition Decision Discharge )( Discharged to Home Yes )( Time 173 )( Date 04/22/20 Discharge/Care Plan (Auto) Prescriptions Current Visit Scripts No Known Home Medications Referrals No Primary or Family Physician (PCP/Family) at [address] [facility] #:[id number] END OF REPORT [facility]
[2024-09-25] MEDS ORDERED: ALBUTEROL 2.5 MG/3 ML NEB SOL ONE (21:55)
[2024-09-25] MEDS ORDERED: IPRATROPIUM BROM 0.5MG/2.5ML ONE ×2 (21:55→23:45)
[2024-09-25 22:17] LABS: Absolute Basophils 0.1 K/uL (0-0.5); Absolute Eosinophils 0.1 K/uL (0-0.5); Absolute Lymphocytes (CBC) 0.5 K/uL (0.7-4.9); Absolute Monocytes 0.4 K/uL (0.1-1.3); Absolute Neutrophil 12.3 K/uL (1.8-8.0); Basophils % 1.1 % (0-1.3); Eosinophils % 0.4 % (0-4.4); Hematocrit 44.1 % (39.6-49.0); Hemoglobin 15.1 g/dL (13.6-17.9); Lymphocytes % 3.7 % (15.3-44.8); MCH 30.4 pg (27.0-35.0); MCHC 34.2 g/dL (32.0-36.0); MPV 7.6 fL (7.6-11.3); Monocytes % 2.8 % (3.3-12.3); Platelets 274 thou/uL (152-406); RBC Red Blood Cell Count 4.95 M/uL (4.33-5.43); Red Cell Distribution Width 13.2 % (12.1-15.2)
--- NOTE | 2024-09-25 22:18 | RAD REPORT ---
EXAMINATION: ONE VIEW CHEST XR CLINICAL INDICATION: Male, 38 years old.,dsypnea TECHNIQUE: Frontal chest projection is submitted. Examination is limited by patient positioning and t echnique. COMPARISON: No prior exam. FINDINGS: The lungs are well inflated and clear. No pneumothorax or sizable effusion. The heart is normal in s ize. Mediastinal contours are unremarkable. IMPRESSION: No acute intrathoracic abnormalities.
[2024-09-25 22:19] LABS: ALT/SGPT 28 U/L (16-61); AST/SGOT 18 U/L (15-37); Albumin/Globulin Ratio 1.3 (1.1-1.8); Alkaline Phosphatase 98 U/L (45-117); Anion Gap 9.7 mEq/L (5.0-15.0); BUN Blood Urea Nitrogen 17 mg/dL (7-18); Bicarbonate 25 mEq/L (21-32); Bilirubin Total 0.3 mg/dL (0.2-1.0); Globulin 3.2 g/dL (2.3-3.5); Glomerular Filtration Rate 87 ml/min (=/>90); Glucose Level 132 mg/dL (74-106); NT PRO-BNP 27 pg/mL (<125); Potassium 3.7 mEq/L (3.5-5.1); Protein, Total 7.2 g/dL (6.4-8.2); Sodium Level 138 mEq/L (136-145)
[2024-09-25 22:21] LABS: Bilirubin Direct < 0.2 mg/dL (0-0.2); Bilirubin Indirect, Calculated 0.1 mg/dL (0.2-0.8); Troponin High Sensitivity < 3.0 pg/mL (<58.9)
--- NOTE | 2024-09-25 23:38 | EDPHYS ---
Physician Documentation [facility] Name: Corey Rosa III Age: 38 yrs Sex: Male : 1985 Arrival Date: 09/25/2024 Time: 21:36 Bed 5 Private MD: ED Physician Syed Peck HPI: 09/25 22:30 This 38 yrs old Male presents to ER via Ambulatory with complaints of Asthma rt Exacerbation. 22:30 Patient with history of asthma multiple controlled medications presents to the ED with rt asthma exacerbation. He is about on day 3 of a prednisone dose for the asthma exacerbation, is been doing breathing treatments at home to no relief. Denies other acute complaints at this time, symptoms are moderate severity, no other aggravating elevating factors.. Historical: - Allergies: 21:43 No Known Allergies; ha1 - Home Meds: 21:43 Singulair Oral [Active]; atorvastatin oral [Active]; fluticasone furoate inhalation ha1 [Active]; - PMHx: 21:43 Hypercholesterolemia; Asthma; ADHD; ha1 - PSHx: 21:43 None; ha1 - Immunization history:: Adult Immunizations up to date, Adult Immunizations up to date. - Infectious Disease History:: Denies. Denies. - Social history:: Smoking status: Patient denies any tobacco usage or history of. Smoking status: Patient denies any tobacco usage or history of. - Family history:: not pertinent. ROS: 22:30 Constitutional: Negative for fever, chills, and weight loss, Cardiovascular: Negative rt for chest pain, palpitations, and edema, Abdomen/GI: Negative for abdominal pain, nausea, vomiting, diarrhea, and constipation, MS/Extremity: Negative for injury and deformity, Skin: Negative for injury, rash, and discoloration, 22:30 Respiratory: Positive for cough, shortness of breath, wheezing, Exam: 22:30 Constitutional: This is a well developed, well nourished patient who is awake, alert, rt and in no acute distress. Head/Face: Normocephalic, atraumatic. Chest/axilla: Normal chest wall appearance and motion. Nontender with no deformity. No lesions are appreciated. Cardiovascular: Regular rate and rhythm with a normal S1 and S2. No gallops, murmurs, or rubs. Normal PMI, no JVD. No pulse deficits. Abdomen/GI: Soft, non-tender, with normal bowel sounds. No distension or tympany. No guarding or rebound. No evidence of tenderness throughout. Skin: Warm, dry with normal turgor. Normal color with no rashes, no lesions, and no evidence of cellulitis. MS/ Extremity: Pulses equal, no cyanosis. Neurovascular intact. Full, normal range of motion. Neuro: Awake and alert, GCS 15, oriented to person, place, time, and situation. Cranial nerves II-XII grossly intact. Motor strength 5/5 in all extremities. Sensory grossly intact. Cerebellar exam normal. Normal gait. 22:30 ECG was reviewed by the Attending Physician. 22:30 Respiratory: Wheezes heard in all lung montoya, no respiratory distress, Vital Signs: 21:43 BP 139 / 93; Pulse 107; Resp 17 S; Temp 98.2(T); Pulse Ox 99% on R/A; Weight 81.65 kg; ha1 Height 5 ft. 9 in. ; 23:49 BP 130 / 69; Pulse 107; Resp 18; Pulse Ox 98% ; cp4 21:43 Body Mass Index 26.58 (81.65 kg, 175.26 cm) ha1 MDM: 21:47 Medical Screening Exam initiated rt 09/26 00:28 Differential diagnosis: Asthma, pneumonia. Data reviewed: vital signs, nurses notes, rt lab test result(s), EKG, radiologic studies. Consideration of Admission/Observation Escalation of care including admission/observation considered. Symptoms improving, no pneumonia, hypoxia, stable for outpatient care. I considered the following discharge prescriptions or medication management in the emergency department Medications were administered in the Emergency Department. See MAR. Independent interpretation of the following test(s) in the Emergency Department X-Ray: My interpretation is No infiltrate seen on interpretation of x-ray images. Test considered but Not performed: CT: Symptoms are consistent with a bronchospasm, do not suspect PE, CT angiogram not indicated. Care significantly affected by the following chronic conditions: Asthma. Counseling: I had a detailed discussion with the patient and/or guardian regarding the historical points, exam findings, and any diagnostic results supporting the discharge/admit diagnosis, lab results, radiology results, the need for outpatient follow up, to return to the emergency department if symptoms worsen or persist or if there are any questions or concerns that arise at home. Response to treatment: the patient's symptoms have markedly improved after treatment. 09/25 21:48 Order name: Basic Metabolic Panel; Complete Time: 22:22 rt 09/25 21:48 Order name: CBC with Diff rt 09/25 21:48 Order name: LFT's; Complete Time: 22:22 rt 09/25 21:48 Order name: Magnesium; Complete Time: 22:22 rt 09/25 21:48 Order name: NT PRO-BNP; Complete Time: 22:22 rt 09/25 21:48 Order name: Troponin HS; Complete Time: 22:22 rt 09/25 22:47 Order name: Manual Differential EDMS 09/25 21:48 Order name: XRAY Chest (1 view); Complete Time: 22:20 rt 09/25 21:48 Order name: Cardiac monitoring; Complete Time: 21:52 rt 09/25 21:48 Order name: EKG - Nurse/Tech; Complete Time: 21:52 rt 09/25 21:48 Order name: IV Saline Lock; Complete Time: 21:52 rt 09/25 21:48 Order name: Labs collected and sent; Complete Time: 21:52 rt 09/25 21:48 Order name: O2 Per Protocol; Complete Time: 21:52 rt 09/25 21:48 Order name: O2 Sat Monitoring; Complete Time: 21:52 rt EC/25 22:30 Rate is 98 beats/min. Rhythm is regular, Normal Sinus Rhythm with No ectopy. QRS Rheems rt is Normal. MA interval is normal. QRS interval is normal. QT interval is normal. No Q waves. T waves are Normal. No ST changes noted. Interpreted by me. Administered Medications: 21:57 Drug: DuoNeb Nebulize (3:1) (2.5 mg - 0.5 mg) 3 ml Nebulizer once Route: Nebulizer; cp4 23:16 Follow up: Response: No adverse reaction cp4 23:48 Drug: Ipratropium Inhalation Aerosol 1 mg Inhalation once Route: Inhalation; cp4 23:48 Follow up: Response: No adverse reaction cp4 Disposition Summary: 09/25/24 23:38 Discharge Ordered Notes: Location: Home rt Problem: an ongoing problem rt Symptoms: have improved rt Condition: Stable rt Diagnosis - Unspecified asthma with (acute) exacerbation rt Followup: rt - With: Private Physician - When: 2 - 3 days - Reason: Discharge Instructions: - Discharge Summary Sheet rt - Asthma, Adult rt Forms: - Medication Reconciliation Form rt - Antibiotic Education rt - Prescription Opioid Use rt - Patient Portal Instructions rt - Leadership Thank You Letter rt Prescriptions: - ipratropium bromide 0.02 % Inhalation solution - nebulize 1.25 milliliter INHALATION route every 8 hours as needed for shortness rt of breath or wheezing; 40 milliliter; Refills: 0, Product Selection Permitted Signatures: Dispatcher [employer] Maira Szymanski RN RN ha1 Syed Peck MD MD rt Paulina Cabrera cp4
--- NOTE | 2024-09-25 23:38 | ER ---
Nurse's Notes [facility] Name: Corey Rosa III Age: 38 yrs Sex: Male : 1985 Arrival Date: 09/25/2024 Time: 21:36 Bed 5 Private MD: Diagnosis: Unspecified asthma with (acute) exacerbation Presentation: 09/25 21:43 Chief complaint: Patient states: DIFFICULTY BREATHING, COUGH, POSSIBLE ASTHMA ha1 EXACERBATION. 21:43 Coronavirus screen: Client denies travel out of the [place] in the last 14 days. Ebola ha1 Screen: No symptoms or risks identified at this time. Initial Sepsis Screen: Does the patient meet any 2 criteria? No. Patient's initial sepsis screen is negative. Does the patient have a suspected source of infection? No. Patient's initial sepsis screen is negative. Risk Assessment: Do you want to hurt yourself or someone else? Patient reports no desire to harm self or others. Onset of symptoms was September 25, 2024. 21:43 Method Of Arrival: Ambulatory ha1 21:43 Acuity: URIEL 3 ha1 Triage Assessment: 21:43 General: Appears uncomfortable, Behavior is calm, cooperative. Pain: Denies pain. ha1 Neuro: Level of Consciousness is awake, alert, obeys commands, Oriented to person, place, time, situation. Cardiovascular: Patient's skin is warm and dry. Respiratory: Reports shortness of breath Airway is patent Respiratory effort is even, unlabored, Respiratory pattern is regular, symmetrical. Historical: - Allergies: 21:43 No Known Allergies; ha1 - Home Meds: 21:43 Singulair Oral [Active]; atorvastatin oral [Active]; fluticasone furoate inhalation ha1 [Active]; - PMHx: 21:43 Hypercholesterolemia; Asthma; ADHD; ha1 - PSHx: 21:43 None; ha1 - Immunization history:: Adult Immunizations up to date, Adult Immunizations up to date. - Infectious Disease History:: Denies. Denies. - Social history:: Smoking status: Patient denies any tobacco usage or history of. Smoking status: Patient denies any tobacco usage or history of. - Family history:: not pertinent. Screenin:08 [facility] ED Fall Risk Assessment (Adult) History of falling in the last 3 months, cp4 including since admission No falls in past 3 months (0 pts) Confusion or Disorientation No (0 pts) Intoxicated or Sedated No (0 pts) Impaired Gait No (0 pts) Mobility Assist Device Used No (0 pt) Altered Elimination No (0 pt) Score/Fall Risk Level 0 - 2 = Low Risk Oriented to surroundings, Maintained a safe environment, Assessed \T\ reinforced patient's understanding of fall precautions, Hourly rounding (assess needs \T\ fall precautionary measures) done. Abuse screen: Denies threats or abuse. Nutritional screening: No deficits noted. Tuberculosis screening: No symptoms or risk factors identified. Assessment: 22:08 General: Appears in no apparent distress. comfortable, Behavior is calm, cooperative, cp4 appropriate for age. Pain: Denies pain. Neuro: Level of Consciousness is awake, alert, obeys commands, Oriented to person, place, time, situation. Cardiovascular: Patient's skin is warm and dry. Rhythm is sinus rhythm. Respiratory: Airway is patent Respiratory effort is even, unlabored, Breath sounds with wheezes bilaterally. GI: No signs and/or symptoms were reported involving the gastrointestinal system. : No signs and/or symptoms were reported regarding the genitourinary system. EENT: No signs and/or symptoms were reported regarding the EENT system. Derm: No signs and/or symptoms reported regarding the dermatologic system. Musculoskeletal: No signs and/or symptoms reported regarding the musculoskeletal system. Vital Signs: 21:43 BP 139 / 93; Pulse 107; Resp 17 S; Temp 98.2(T); Pulse Ox 99% on R/A; Weight 81.65 kg; ha1 Height 5 ft. 9 in. ; 23:49 BP 130 / 69; Pulse 107; Resp 18; Pulse Ox 98% ; cp4 21:43 Body Mass Index 26.58 (81.65 kg, 175.26 cm) ha1 ED Course: 21:40 Patient arrived in ED. [id number] 21:40 Syed Peck MD is Attending Physician. rt 21:52 Paulina Cabrera is Primary Nurse. cp4 21:52 XRAY Chest (1 view) Sent. cp4 22:08 Triage completed. ha1 22:08 No provider procedures requiring assistance completed. Initial lab(s) drawn, by me, cp4 sent to lab. Inserted saline lock: 20 gauge in right antecubital area, using aseptic technique. Blood collected. Flushed with 10 mL NS. 22:08 Bed in low position. Call light in reach. Side rails up X 1. Provided Education on: cp4 asthma. 22:11 XRAY Chest (1 view) In Process Unspecified. EDMS 23:49 intact, bleeding controlled, No redness/swelling at site. Pressure dressing applied. cp4 23:50 Arm band placed on right wrist. Patient placed in waiting room. cp4 Administered Medications: 21:57 Drug: DuoNeb Nebulize (3:1) (2.5 mg - 0.5 mg) 3 ml Nebulizer once Route: Nebulizer; cp4 23:16 Follow up: Response: No adverse reaction cp4 23:48 Drug: Ipratropium Inhalation Aerosol 1 mg Inhalation once Route: Inhalation; cp4 23:48 Follow up: Response: No adverse reaction cp4 Medication: 22:08 VIS not applicable for this client. cp4 Outcome: 23:38 Discharge ordered by MD. rt 23:49 Discharged to home ambulatory, cp4 23:49 Condition: stable 23:49 Discharge instructions given to patient, Instructed on discharge instructions, follow up and referral plans. medication usage, Demonstrated understanding of instructions, follow-up care, medications, Prescriptions given X 1, 23:50 Patient left the ED. cp4 Signatures: Dispatcher [employer] EDFL Graciela Kulkarni6 Maira Johnson, RN RN ha1 Syed Peck MD MD rt Potter, Christina cp4
[2024-09-25 23:51] LABS: Band Neutrophils 4 % (0-1); Blood Morphology Comment NOT SEEN (NOT SEEN); Differential Total Cells Count 100; Lymphocytes 11 % (15-42); Monocytes 2 % (0-10); Platelet Estimate ADEQ; Segmented Neutrophils 83 % (40-80)
[2024-09-26 06:41] VITALS: TEMP 98.2
[2024-09-26 06:42] VITALS: BP 130/69; O2SAT 98
--- NOTE | 2024-09-27 11:37 | EKG ---
Test Date: 2024-09-25 Test Time: 21:51:50 Square Shear Operator: SHEA MEASUREMENT RESULTS: Intervals: Rate: 98 NV: 166 QRSD: 72 QT: 326 QTc: 416 [place]: P: 43 NV: 166 QRS: 67 T: 47 INTERPRETIVE STATEMENTS: Normal sinus rhythm with sinus arrhythmia Normal ECG No previous ECG available for comparison Electronically Signed On 09-27-24 11:32:37 MANAGER OF SOFTWARE by Nimesh Bernabe
== END 2024-09-25 23:50 | disposition home or self-care (01) ==
LOC: ER 21:36
DX: J45.901 Unspecified asthma with (acute) exacerbation (principal); F90.9 Attention-deficit hyperactivity disorder, unspecified type; E78.00 Pure hypercholesterolemia, unspecified
CPT/HCPCS: 93005; 85025; 80048; 36415; 83735; 80076; 84484; 83880; 71045; 99284; J7613; J7644 ×2